=== PATIENT | female | born 1995 | race Caucasian/White ===

== ENCOUNTER 2025-01-13 22:26 | Emergency (ER) | payer BC ==
[~2025-01-13] VITALS: Ht 157.5 cm; Wt 52.7 kg
[2025-01-13 22:32] VITALS: BP 141/75; PULSE 63; RESP 16; TEMP 97.9; O2SAT 100
[2025-01-13] MEDS ORDERED: MOXI3DRO25 OS (23:26)
[2025-01-13] MEDS: PredniSONE 20 MG TABLET PO ONE (23:39)
== END 2025-01-13 23:43 | disposition home or self-care (01) ==
LOC: EMS 22:29
DX: H15.002 Unspecified scleritis, left eye (principal); H15.102 Unspecified episcleritis, left eye
CPT/HCPCS: 99283; J7512